=== PATIENT | female | born 1965 | race Caucasian/White ===

== ENCOUNTER 2018-05-06 23:50 | Emergency (ER) | payer MEDICAID, SELFPAY ==
[2018-05-06 23:50] VITALS: BP 156/91; PULSE 81; RESP 18; TEMP 36.6; O2SAT 99; BMI 29.0
--- NOTE | 2018-05-07 00:06 | ED.DCSUM_ITS ---
- ER Visit Summary Date of Service: 05/07/18 Chief Complaint: Right upper jaw dental pain History of Present Illness: The patient is a 52 F currently does not have a dentist. Is planning on getting into the [facility]. Patient has had dental pain for the last 2 weeks. Was seen by the [facility] urgent care they put her on penicillin. She said it has not significantly made the pain any better. She denies any fever. She denies any facial swelling. She states she has been using Tylenol and Motrin without significant. She was hoping to get something stronger. Physical Examination: Middle-aged female no acute distress. Vital signs are stable afebrile. H EENT exam unremarkable other than her right upper teeth and gums are receding. She has dental tenderness of the premolar there is obvious cavity. I do not see any gingival swelling. I do not see any abscess. There is no trismus. No facial swelling. Her other dentition are relatively good shape. There are some fillings. There are some missing teeth. There is no malocclusion. Neck nontender. No lymphadenopathy. Lungs clear to auscultation bilaterally. Heart regular rate and rhythm no murmur. Otherwise exam unremarkable. Test Results: None Emergency Department Course and Treatment: I did explain to the patient that typically for dental pain we have patients alternate between Tylenol and Motrin. We avoid narcotic pain medication as much as possible due to the risk of addiction. And she did not want a dental block. Treatment Plan: Tylenol and Motrin for pain. Ice to the jaw. Follow-up with a dentist. Disposition: Discharge Impression: Right upper premolar dental pain secondary to dental cavity This note was generated with [employer] dictation software. It may contain incorrect words, spelling, and punctuation that were not noted in review of the chart prior to signing ED Disposition - Plan for ED Patient: Chief Complaint: Dental Referrals: Abe Ortega MD [Primary Care Provider] -
--- NOTE | 2018-05-07 00:06 | ED.DEP ---
ED Disposition - Plan for ED Patient: Disposition: Home or Assisted Living Chief Complaint: Dental Instructions: ED Tooth Pain Referrals: Tori Evangelista [NON-STAFF] - As soon as possible Additional Instructions: Ice to the jaw. Alternate Tylenol and Motrin for pain. Call follow-up with a dentist as soon as possible.
[2018-05-07 00:26] VITALS: RESP 17
== END 2018-05-07 00:26 | disposition home or self-care (01) ==
LOC: ED 05-07 00:15
PROVIDERS: Emergency Provider Emergency Medicine; Family Provider Family Medicine; PCP Family Medicine
DX: K02.9 Dental caries, unspecified (principal); K06.010 Localized gingival recession, unspecified; I10 Essential (primary) hypertension; J45.909 Unspecified asthma, uncomplicated; Z72.0 Tobacco use
CPT/HCPCS: 99282

== ENCOUNTER → 2024-06-19 | Outpatient (CLI) | payer MEDICAID, SELFPAY ==
[2024-06-19 18:55] LABS: Hepatitis B Surface Antibody Non-Reactive
[2024-06-21 20:08] LABS: HEPATITIS B SURFACE AG Negative (Negative); Hep C Antibodies Non Reactive (Non Reactive); Hepatitis A AB, Total Negative (Negative); Hepatitis A IgM Antibody Negative (Negative); Hepatitis B Core AB IgM Negative (Negative); QNTFERON TB Mitogen Value > 10.00 IU/mL (.); QNTFERON TB Nil Value 0.02 IU/mL (.); QNTFERON TB1+ Ag Value 0.02 IU/mL (.); QNTFERON TB2+ Ag Value 0.03 IU/mL (.); QNTIFERON TB Positive Criteria Negative (Negative)
== END | disposition home or self-care (01) ==
LOC: MTLAB 15:57
PROVIDERS: PCP Family Medicine; Referring Provider Physician Assistant; Visit Provider Physician Assistant
DX: L73.2 Hidradenitis suppurativa (principal)
CPT/HCPCS: 36415; 80074; 86480; 86706; 86708

== ENCOUNTER → 2025-02-13 | Outpatient (CLI) | payer MEDICAID, SELFPAY ==
[2025-02-15 10:08] LABS: QNTFERON TB Mitogen Value > 10.00 IU/mL (.); QNTFERON TB1+ Ag Value 0.07 IU/mL (.); QNTFERON TB2+ Ag Value 0.08 IU/mL (.); QNTIFERON TB Positive Criteria Negative (Negative)
== END | disposition home or self-care (01) ==
LOC: MTLAB 14:05
PROVIDERS: PCP Family Medicine; Referring Provider Physician Assistant; Visit Provider Physician Assistant
DX: L40.0 Psoriasis vulgaris (principal); L73.2 Hidradenitis suppurativa; L91.8 Other hypertrophic disorders of the skin; R20.8 Other disturbances of skin sensation; Z79.899 Other long term (current) drug therapy
CPT/HCPCS: 36415; 86480